=== PATIENT | female | born 1945 | race Caucasian/White ===

== ENCOUNTER 2016-07-16 15:16 | Emergency (ER) | payer MEDICARE, OTHER ==
[~2016-07-16 15:16] MED LIST: APRES25 PO; ARICEPT10 PO; BAC PO; BENTYL10 PO; BUSPAR15 M1 PO; CAP25 PO; CELEXA40 MG PO; CHOLESTYRAM4 GM PO; COREG3 PO; COREG6 PO; DIGITEK0.125 MG PO; DIGITEK0.25 MG PO; HUMALOG SC; HUMALOGPEN SC; INSULIN SC; IODOSORB GEL; L40 PO; LAN125 PO; LANTUS SC; LEVOTHROID50 MCG PO; LIBRAX PO; MICRO-K10 MEQ PO; NAMENDA10 MG PO; NORV5 PO; NOVOPEN SC; PREVALITE4 G1 PO; PRILO PO; PRIN20 PO; RAZADYNE4 PO; SINGULAIR1 PO; SYN.05 PO; SYN075 PO; TRAZ50 PO; TRICOR145 PO; TRILEPTAL600 MG PO; TRILIPTAL; VICTOSA; VICTOZA18 MG/3 ML SC; VITAMIN D1000 UNI1 PO; WELL100 PO; WELLXL300 PO; Z300 PO; ZOCOR80 MG PO
== END 2016-07-16 15:32 | disposition home or self-care (01) ==
LOC: ER 15:16
DX: S09.90XA Unspecified injury of head, initial encounter (principal); S29.011A Strain of muscle and tendon of front wall of thorax, initial encounter; I12.9 Hypertensive chronic kidney disease with stage 1 through stage 4 chronic kidney disease, or unspecified chronic kidney disease; N18.9 Chronic kidney disease, unspecified; E11.22 Type 2 diabetes mellitus with diabetic chronic kidney disease; E03.9 Hypothyroidism, unspecified; W19.XXXA Unspecified fall, initial encounter; Z88.8 Allergy status to other drugs, medicaments and biological substances; Z88.0 Allergy status to penicillin; Z88.1 Allergy status to other antibiotic agents; Z79.899 Other long term (current) drug therapy; Z79.4 Long term (current) use of insulin
CPT/HCPCS: 70450; 71100-RT; 99284; A9270-GY